=== PATIENT | male | born 1950 | race American Indian/Alaskan Native ===

== ENCOUNTER 2016-10-20 20:03 | Inpatient (IN) | payer BC, MEDICARE ==
[2016-10-20 21:04] LABS: Basophils % (Auto) 0.8 % (0.0-1.8); Eosinophils % (Auto) 4.9 % (0.0-4.3); Hemoglobin 12.4 gm/dl (11.8-15.2); Mean Corpuscular HGB Conc 31 % (32-34); Mean Corpuscular Hemoglobin 28 pg (28-32); Mean Corpuscular Volume 88 fl (84-94); Platelet Count 242 K/mm3 (140-440); Red Blood Count 4.53 M/mm3 (3.65-5.03); White Blood Count 7.2 K/mm3 (4.5-11.0)
[2016-10-20 21:10] LABS: Albumin 3.2 g/dL (3.9-5); Albumin/Globulin Ratio 0.9 %; BUN/Creatinine Ratio 7.03; Bilirubin,Total 0.2 mg/dL (0.1-1.2); Calcium 8.6 mg/dL (8.4-10.2); Chloride 94.6 mmol/L (98-107); Magnesium 2.4 mg/dL (1.7-2.3); Total Protein 6.8 g/dL (6.3-8.2)
[2016-10-20] MEDS ORDERED: ATIVAN ONE (21:10)
[2016-10-20] MEDS ORDERED: HALDOL ONE (21:10)
[2016-10-20] MEDS ORDERED: HALDOL IM ONE (21:12)
[2016-10-20] MEDS ORDERED: VALIUM IV ONE (21:12)
[2016-10-20] MEDS ORDERED: ATIVAN IV ONE (21:12)
[2016-10-20] MEDS ORDERED: APRESOLINE IV ONE ×2 (21:12→22:30)
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
[2016-10-20 21:59] LABS: Urine Drugs of Abuse Note Disclamer
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
[2016-10-20 22:20] LABS: Bilirubin,Urine NEG (Negative); Blood,Urine NEG (Negative); Ketones,Urine NEG (Negative); Leukocyte Esterase,Urine NEG (Negative); Nitrite,Urine NEG (Negative); Urobilinogen,Urine < 2.0 mg/dL (<2.0); WBC,Urine < 1.0 /HPF (0.0-6.0)
[2016-10-20 22:28] LABS: Protein,Urine >500 mg/dL (Negative)
[2016-10-20] MEDS ORDERED: NACL 0.9% 1000 ML 1,000 ML IV ONE (22:30)
[2016-10-20] MEDS ORDERED: D50W (25GM) IV PRN (23:09)
[2016-10-20] MEDS ORDERED: ZOFRAN IV PRN (23:12)
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
--- NOTE | 2016-10-20 23:30 | XRay Report ---
FINAL REPORT PROCEDURE: XR CHEST 1V AP TECHNIQUE: Chest radiograph anteroposterior view. CPT 82160 HISTORY: ams ? pna COMPARISON: No prior studies are available for comparison. FINDINGS: This study is limited due to suboptimal inspiration. Heart: Normal. Mediastinum/Vessels: Normal. Lungs/Pleural space: Normal. Bony thorax: No acute osseous abnormality. Life support devices: None. IMPRESSION: Limited study due to suboptimal inspiration. No acute pulmonary process. A two view chest study is recommended whenever the patient's condition permits.
[2016-10-20] MEDS ORDERED: D5W/0.45% NACL/KCL 20 MEQ 20 MEQ/1,000 ML BAG IV SCH (23:45)
[2016-10-20] MEDS ORDERED: D5/0.45NS 1,000 ML IV SCH (23:45)
[2016-10-20] MEDS ORDERED: CARDENE 50 MG in NACL 0.9% 250ML 230 ML IV SCH (23:45)
[2016-10-21 00:01] LABS: BUN/Creatinine Ratio 7.3; Calcium 8.7 mg/dL (8.4-10.2); Chloride 96.1 mmol/L (98-107); Magnesium 2.3 mg/dL (1.7-2.3); Phosphorous 1.3 mg/dL (2.5-4.5); Potassium 4.6 mmol/L (3.6-5.0)
[2016-10-21] MEDS ORDERED: NACL 0.9% 1000 ML 1,000 ML ONE (00:07)
[2016-10-21] MEDS: NovoLIN R 100 UNITS in NACL 0.9% 99 ML IV SCH ×2 (00:15→15:36)
[2016-10-21] MEDS: NACL 0.9% 1000 ML 1,000 ML IV SCH ×2 (00:15→05:33)
--- NOTE | 2016-10-21 00:23 | Admit Criteria Form ---
Admission Criteria Documentation: HYPERTENSION Clinical Indications for Admission to Inpatient Care ( Place "X" for any and all applicable criteria): Admission is indicated for ANY ONE of the following(1)(2)(3)(4): [ X]I. Hypertensive emergency, with evidence of acute and progressing target organ disease as indicated by ANY ONE of the following: [ X]a) Hypertensive encephalopathy (eg, confusion, altered mental status) [ ]b) Cerebral infarction [ ]c) Intracranial hemorrhage [ ]d) Myocardial ischemia or infarction [ ]e) Pulmonary edema [ ]f) Aortic dissection [ ]g) Seizure [ ]h) Acute renal insufficiency [ ]i) Papilledema [ ]j) Microangiopathic hemolytic anemia [ ]II. Adrenergic crisis (eg, severe hypertension due to pheochromocytoma crisis, cocaine or amphetamine intoxication, or clonidine withdrawal) [ ]III. Severe hypertension (SBP greater than 180 mmHg or DBP greater than 110 mmHg or greater than the 95th percentile for age, gender, and height in pediatric patients) that cannot be controlled (eg, to SBP less than 160 mmHg and DBP less than 100 mmHg in adults) by treatment with oral medication in emergency department or observation care Extended stay beyond goal length of stay may be needed for(11)(12)(13): [ ]a) Persistent hypertensive encephalopathy [ ]b) Continuation of pulmonary edema [ ]c) Recurring or persistent severe hypertension [ ]d) Target organ damage (eg, angina, stroke, aortic dissection) [ ]e) Associated renal insufficiency The original [employer] content created by [employer] has been revised. The portions of the content which have been revised are identified through the use of italic text or in bold, and [facility] has neither reviewed nor approved the modified material. All other unmodified content is copyright [employer]. Please see references footnoted in the original [employer] edition 2016
[2016-10-21 00:25] LABS: Creatine Kinase MB 3.3 ng/mL (0.0-4.0)
[2016-10-21 00:26] LABS: Creatine Kinase 307 units/L (55-170)
[2016-10-21] MEDS ORDERED: ATIVAN IV ONE (00:31)
[2016-10-21 00:44] LABS: Cholesterol 240 mg/dL (50-199); HDL Cholesterol 30 mg/dL (40-59); LDL Cholesterol,Direct TNR mg/dL (50-130); Triglycerides 637 mg/dL (2-149)
[2016-10-21] MEDS: APRESOLINE IV PRN (01:25)
[2016-10-21 01:59] LABS: BUN/Creatinine Ratio 7.2; Calcium 8.9 mg/dL (8.4-10.2); Chloride 102.7 mmol/L (98-107); Potassium 4.2 mmol/L (3.6-5.0)
[2016-10-21 04:53] LABS: BUN/Creatinine Ratio 6.95; Chloride 107.3 mmol/L (98-107)
[2016-10-21 07:59] LABS: BUN/Creatinine Ratio 6.81; Calcium 8.9 mg/dL (8.4-10.2); Potassium 3.8 mmol/L (3.6-5.0)
[2016-10-21 09:19] LABS: Creatine Kinase MB 2.3 ng/mL (0.0-4.0)
[2016-10-21] MEDS ORDERED: NACL 0.9% 1000 ML IV ONE (11:01)
[2016-10-21] MEDS ORDERED: PANCREAZE DR 10,500 UNIT FEEDTUBE PRN (11:30)
[2016-10-21] MEDS ORDERED: SODIUM BICARBONATE FEEDTUBE PRN (11:30)
[2016-10-21] MEDS ORDERED: SIMPLE SYRUP FEEDTUBE PRN ×2 (11:30)
[2016-10-21] MEDS: LOVENOX SUB-Q SCH (12:22)
--- NOTE | 2016-10-21 13:43 | XRay Report ---
KUB: Dobbhoff position. The tip of the Dobbhoff catheter is in the very proximal stomach. Advancing it several centimeters is advised for better positioning. No other findings.
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
[2016-10-21] MEDS ORDERED: NACL 0.9% 1000 ML 1,000 ML IV SCH (15:00)
[2016-10-21] MEDS: ZOSYN/NS 4.5GM/100ML 4.5 GM/100 ML VIAL IV SCH ×2 (15:35→18:00)
[2016-10-21 16:20] LABS: INR 1.06 (0.87-1.13)
[2016-10-21 16:30] LABS: BUN/Creatinine Ratio 5.5; Calcium 7.1 mg/dL (8.4-10.2); Chloride 87.9 mmol/L (98-107)
[2016-10-21 18:09] LABS: Albumin 2.6 g/dL (3.9-5); Albumin/Globulin Ratio 0.8 %; BUN/Creatinine Ratio 5.45; Bilirubin,Total 0.3 mg/dL (0.1-1.2); Calcium 8.3 mg/dL (8.4-10.2); Chloride 107.5 mmol/L (98-107); Potassium 3.6 mmol/L (3.6-5.0); Total Protein 5.8 g/dL (6.3-8.2)
[2016-10-21] MEDS ORDERED: LEVEMIR SUB-Q SCH (22:00)
[2016-10-21] MEDS: NOVOLOG SUB-Q SCH (22:00)
[2016-10-22] MEDS ORDERED: NITRO-BID 2% TP ONE (04:51)
[2016-10-22] MEDS ORDERED: APRESOLINE IV ONE (04:52)
[2016-10-22] MEDS ORDERED: TOPROL XL PO STA (05:42)
[2016-10-22 05:55] LABS: Hematocrit 38.1 % (35.5-45.6); Mean Corpuscular HGB Conc 32 % (32-34); Mean Corpuscular Hemoglobin 27 pg (28-32); Mean Corpuscular Volume 85 fl (84-94); Platelet Count 236 K/mm3 (140-440); Red Blood Count 4.51 M/mm3 (3.65-5.03); Red Cell Distribution Width 14.1 % (13.2-15.2); White Blood Count 11.4 K/mm3 (4.5-11.0)
[2016-10-22 06:08] LABS: BUN/Creatinine Ratio 5.65; Calcium 8.3 mg/dL (8.4-10.2); Chloride 105.9 mmol/L (98-107); Potassium 3.9 mmol/L (3.6-5.0)
[2016-10-22] MEDS: ZOSYN/NS 4.5GM/100ML 4.5 GM/100 ML VIAL IV SCH ×3 (06:12→12:19)
[2016-10-22] MEDS: LOPRESSOR PO SCH ×2 (09:41→21:22)
[2016-10-22] MEDS: LOVENOX SUB-Q SCH (09:42)
[2016-10-22] MEDS: NOVOLOG SUB-Q SCH ×4 (09:42→23:47)
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
--- NOTE | 2016-10-22 14:11 | Consultation ---
History of Present Illness - Reason for Consult Consult date: 10/22/16 ams - History of Present Illness Thanks for the consult spoke to the attending nurse last evening went over the hx and all labs Past History Past Medical History: diabetes, hypertension, hyperlipidemia, renal failure Social history: lives with family Family history: hypertension Medications and Allergies Allergies Allergy/AdvReac Type Severity Reaction Status Date / Time No Known Allergies Allergy Verified 10/20/16 21:10 Active Meds: Active Medications Acetaminophen (Tylenol) 650 mg PO Q4H PRN PRN Reason: Pain MILD(1-3)/Fever >100.5/KNOTT Lipase/Protease/Amylase (Pancreaze Dr 10,500 Unit) 1 each FEEDTUBE PRN PRN PRN Reason: For Clogged Feeding Tube Dextrose (D50w (25gm)) 0 ml IV ONCE PRN PRN Reason: Hypoglycemia Enoxaparin Sodium (Lovenox) 40 mg SUB-Q QDAY@1000 KAYCE Hydralazine HCl (Apresoline) 10 mg IV Q6HR PRN PRN Reason: Hypertension Last Admin: 10/21/16 01:25 Dose: 10 mg Sodium Chloride (Nacl 0.9% 1000 Ml) 1,000 mls @ 125 mls/hr IV DIRECT KAYCE Last Admin: 10/21/16 05:33 Dose: 125 mls/hr Dextrose/Sodium Chloride (D5/0.45ns) 1,000 mls @ 125 mls/hr IV DIRECT KAYCE Last Admin: 10/21/16 04:53 Dose: 125 mls/hr Nicardipine HCl 50 mg/ Sodium (Chloride) 250 mls @ 25 mls/hr IV TITR KAYCE; 5 MG/ HR PRN Reason: Protocol Last Titration: 10/21/16 00:53 Dose: 15 mg/hr, 75 mls/hr Piperacillin Sod/Tazobactam Sod (Zosyn/Ns 4.5gm/100ml) 4.5 gm in 100 mls @ 200 mls/hr IV Q6HR KAYCE PRN Reason: Protocol Last Admin: 10/22/16 12:19 Dose: 200 mls/hr Sodium Chloride (Nacl 0.9% 1000 Ml) 1,000 mls @ 125 mls/hr IV DIRECT KAYCE Stop: 10/23/16 22:59 Last Admin: 10/21/16 14:55 Dose: 125 mls/hr Insulin Aspart (Novolog) 0 units SUB-Q ACHS [facility] PRN Reason: Protocol Last Admin: 10/22/16 12:19 Dose: 4 units Insulin Detemir (Levemir) 10 units SUB-Q QHS [facility] Last Admin: 10/21/16 22:30 Dose: 10 units Metoprolol Tartrate (Lopressor) 50 mg PO BID [facility] Last Admin: 10/22/16 09:41 Dose: 50 mg Ondansetron HCl (Zofran) 4 mg IV Q4H PRN PRN Reason: N/V unrelieved by Reglan Simple Syrup (Simple Syrup) 15 ml FEEDTUBE PRN PRN PRN Reason: Hypoglycemia Simple Syrup (Simple Syrup) 30 ml FEEDTUBE PRN PRN PRN Reason: Hypoglycemia Sodium Bicarbonate (Sodium Bicarbonate) 325 mg FEEDTUBE PRN PRN PRN Reason: For Clogged Feeding Tube Exam - Constitutional Vitals: Temp Pulse Resp BP Pulse Ox 99.2 F 74 20 201/92 97 10/22/16 13:43 10/22/16 13:43 10/22/16 13:43 10/22/16 13:43 10/22/16 12:10 Results - Labs CBC & Chem 7: 10/22/16 05:10 10/22/16 05:10 Labs: Abnormal lab results 10/21/16 10/21/16 10/21/16 Range/Units 12:57 14:38 14:46 WBC (4.5-11.0) K/mm3 MCH (28-32) pg Sodium (137-145) mmol/L Potassium (3.6-5.0) mmol/L Chloride (98-107) mmol/L Carbon Dioxide (22-30) mmol/L Creatinine (0.8-1.5) mg/dL Glucose (75-100) mg/dL POC Glucose 144 H 186 H 180 H (70-105) Calcium (8.4-10.2) mg/dL Total Protein (6.3-8.2) g/dL Albumin (3.9-5) g/dL 10/21/16 10/21/16 10/21/16 Range/Units 15:34 16:06 17:46 WBC (4.5-11.0) K/mm3 MCH (28-32) pg Sodium 162 H* D (137-145) mmol/L Potassium 3.0 L D (3.6-5.0) mmol/L Chloride 87.9 L (98-107) mmol/L Carbon Dioxide 16 L (22-30) mmol/L Creatinine 2.0 H 2.2 H (0.8-1.5) mg/dL Glucose 131 H (75-100) mg/dL POC Glucose 179 H (70-105) Calcium 7.1 L D 8.3 L D (8.4-10.2) mg/dL Total Protein 5.8 L (6.3-8.2) g/dL Albumin 2.6 L (3.9-5) g/dL 10/21/16 10/21/16 10/21/16 Range/Units 18:38 19:51 20:55 WBC (4.5-11.0) K/mm3 MCH (28-32) pg Sodium (137-145) mmol/L Potassium (3.6-5.0) mmol/L Chloride (98-107) mmol/L Carbon Dioxide (22-30) mmol/L Creatinine (0.8-1.5) mg/dL Glucose (75-100) mg/dL POC Glucose 107 H 146 H 184 H (70-105) Calcium (8.4-10.2) mg/dL Total Protein (6.3-8.2) g/dL Albumin (3.9-5) g/dL 10/21/16 10/21/16 10/22/16 Range/Units 21:54 23:58 03:27 WBC (4.5-11.0) K/mm3 MCH (28-32) pg Sodium (137-145) mmol/L Potassium (3.6-5.0) mmol/L Chloride (98-107) mmol/L Carbon Dioxide (22-30) mmol/L Creatinine (0.8-1.5) mg/dL Glucose (75-100) mg/dL POC Glucose 202 H 227 H 301 H (70-105) Calcium (8.4-10.2) mg/dL Total Protein (6.3-8.2) g/dL Albumin (3.9-5) g/dL 10/22/16 10/22/16 10/22/16 Range/Units 03:49 05:10 05:10 WBC 11.4 H (4.5-11.0) K/mm3 MCH 27 L (28-32) pg Sodium (137-145) mmol/L Potassium (3.6-5.0) mmol/L Chloride (98-107) mmol/L Carbon Dioxide 19 L (22-30) mmol/L Creatinine 2.3 H (0.8-1.5) mg/dL Glucose 316 H (75-100) mg/dL POC Glucose 252 H (70-105) Calcium 8.3 L (8.4-10.2) mg/dL Total Protein (6.3-8.2) g/dL Albumin (3.9-5) g/dL 10/22/16 10/22/16 Range/Units 05:19 08:08 WBC (4.5-11.0) K/mm3 MCH (28-32) pg Sodium (137-145) mmol/L Potassium (3.6-5.0) mmol/L Chloride (98-107) mmol/L Carbon Dioxide (22-30) mmol/L Creatinine (0.8-1.5) mg/dL Glucose (75-100) mg/dL POC Glucose 294 H 286 H (70-105) Calcium (8.4-10.2) mg/dL Total Protein (6.3-8.2) g/dL Albumin (3.9-5) g/dL
--- NOTE | 2016-10-22 14:20 | Consultation ---
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 sounds like metabolic factors are behind all the above plan MRI Past History Past Medical History: diabetes, hypertension, hyperlipidemia, renal failure Social history: lives with family Family history: hypertension Medications and Allergies Allergies Allergy/AdvReac Type Severity Reaction Status Date / Time No Known Allergies Allergy Verified 10/20/16 21:10 Active Meds: Active Medications Acetaminophen (Tylenol) 650 mg PO Q4H PRN PRN Reason: Pain MILD(1-3)/Fever >100.5/KNOTT Lipase/Protease/Amylase (Pancreaze Dr 10,500 Unit) 1 each FEEDTUBE PRN PRN PRN Reason: For Clogged Feeding Tube Dextrose (D50w (25gm)) 0 ml IV ONCE PRN PRN Reason: Hypoglycemia Enoxaparin Sodium (Lovenox) 40 mg SUB-Q QDAY@1000 KAYCE Hydralazine HCl (Apresoline) 10 mg IV Q6HR PRN PRN Reason: Hypertension Last Admin: 10/21/16 01:25 Dose: 10 mg Sodium Chloride (Nacl 0.9% 1000 Ml) 1,000 mls @ 125 mls/hr IV DIRECT KAYCE Last Admin: 10/21/16 05:33 Dose: 125 mls/hr Dextrose/Sodium Chloride (D5/0.45ns) 1,000 mls @ 125 mls/hr IV DIRECT KAYCE Last Admin: 10/21/16 04:53 Dose: 125 mls/hr Nicardipine HCl 50 mg/ Sodium (Chloride) 250 mls @ 25 mls/hr IV TITR KAYCE; 5 MG/ HR PRN Reason: Protocol Last Titration: 10/21/16 00:53 Dose: 15 mg/hr, 75 mls/hr Piperacillin Sod/Tazobactam Sod (Zosyn/Ns 4.5gm/100ml) 4.5 gm in 100 mls @ 200 mls/hr IV Q6HR KAYCE PRN Reason: Protocol Last Admin: 10/22/16 12:19 Dose: 200 mls/hr Sodium Chloride (Nacl 0.9% 1000 Ml) 1,000 mls @ 125 mls/hr IV DIRECT KAYCE Stop: 10/23/16 22:59 Last Admin: 10/21/16 14:55 Dose: 125 mls/hr Insulin Aspart (Novolog) 0 units SUB-Q ACHS [facility] PRN Reason: Protocol Last Admin: 10/22/16 12:19 Dose: 4 units Insulin Detemir (Levemir) 10 units SUB-Q QHS [facility] Last Admin: 10/21/16 22:30 Dose: 10 units Metoprolol Tartrate (Lopressor) 50 mg PO BID [facility] Last Admin: 10/22/16 09:41 Dose: 50 mg Ondansetron HCl (Zofran) 4 mg IV Q4H PRN PRN Reason: N/V unrelieved by Reglan Simple Syrup (Simple Syrup) 15 ml FEEDTUBE PRN PRN PRN Reason: Hypoglycemia Simple Syrup (Simple Syrup) 30 ml FEEDTUBE PRN PRN PRN Reason: Hypoglycemia Sodium Bicarbonate (Sodium Bicarbonate) 325 mg FEEDTUBE PRN PRN PRN Reason: For Clogged Feeding Tube Exam - Constitutional Vitals: Temp Pulse Resp BP Pulse Ox 99.2 F 74 20 201/92 97 10/22/16 13:43 10/22/16 13:43 10/22/16 13:43 10/22/16 13:43 10/22/16 12:10 Results - Labs CBC & Chem 7: 10/22/16 05:10 10/22/16 05:10 Labs: Abnormal lab results 10/21/16 10/21/16 10/21/16 Range/Units 12:57 14:38 14:46 WBC (4.5-11.0) K/mm3 MCH (28-32) pg Sodium (137-145) mmol/L Potassium (3.6-5.0) mmol/L Chloride (98-107) mmol/L Carbon Dioxide (22-30) mmol/L Creatinine (0.8-1.5) mg/dL Glucose (75-100) mg/dL POC Glucose 144 H 186 H 180 H (70-105) Calcium (8.4-10.2) mg/dL Total Protein (6.3-8.2) g/dL Albumin (3.9-5) g/dL 10/21/16 10/21/16 10/21/16 Range/Units 15:34 16:06 17:46 WBC (4.5-11.0) K/mm3 MCH (28-32) pg Sodium 162 H* D (137-145) mmol/L Potassium 3.0 L D (3.6-5.0) mmol/L Chloride 87.9 L (98-107) mmol/L Carbon Dioxide 16 L (22-30) mmol/L Creatinine 2.0 H 2.2 H (0.8-1.5) mg/dL Glucose 131 H (75-100) mg/dL POC Glucose 179 H (70-105) Calcium 7.1 L D 8.3 L D (8.4-10.2) mg/dL Total Protein 5.8 L (6.3-8.2) g/dL Albumin 2.6 L (3.9-5) g/dL 10/21/16 10/21/16 10/21/16 Range/Units 18:38 19:51 20:55 WBC (4.5-11.0) K/mm3 MCH (28-32) pg Sodium (137-145) mmol/L Potassium (3.6-5.0) mmol/L Chloride (98-107) mmol/L Carbon Dioxide (22-30) mmol/L Creatinine (0.8-1.5) mg/dL Glucose (75-100) mg/dL POC Glucose 107 H 146 H 184 H (70-105) Calcium (8.4-10.2) mg/dL Total Protein (6.3-8.2) g/dL Albumin (3.9-5) g/dL 10/21/16 10/21/16 10/22/16 Range/Units 21:54 23:58 03:27 WBC (4.5-11.0) K/mm3 MCH (28-32) pg Sodium (137-145) mmol/L Potassium (3.6-5.0) mmol/L Chloride (98-107) mmol/L Carbon Dioxide (22-30) mmol/L Creatinine (0.8-1.5) mg/dL Glucose (75-100) mg/dL POC Glucose 202 H 227 H 301 H (70-105) Calcium (8.4-10.2) mg/dL Total Protein (6.3-8.2) g/dL Albumin (3.9-5) g/dL 10/22/16 10/22/16 10/22/16 Range/Units 03:49 05:10 05:10 WBC 11.4 H (4.5-11.0) K/mm3 MCH 27 L (28-32) pg Sodium (137-145) mmol/L Potassium (3.6-5.0) mmol/L Chloride (98-107) mmol/L Carbon Dioxide 19 L (22-30) mmol/L Creatinine 2.3 H (0.8-1.5) mg/dL Glucose 316 H (75-100) mg/dL POC Glucose 252 H (70-105) Calcium 8.3 L (8.4-10.2) mg/dL Total Protein (6.3-8.2) g/dL Albumin (3.9-5) g/dL 10/22/16 10/22/16 Range/Units 05:19 08:08 WBC (4.5-11.0) K/mm3 MCH (28-32) pg Sodium (137-145) mmol/L Potassium (3.6-5.0) mmol/L Chloride (98-107) mmol/L Carbon Dioxide (22-30) mmol/L Creatinine (0.8-1.5) mg/dL Glucose (75-100) mg/dL POC Glucose 294 H 286 H (70-105) Calcium (8.4-10.2) mg/dL Total Protein (6.3-8.2) g/dL Albumin (3.9-5) g/dL
--- NOTE | 2016-10-22 16:13 | Progress Note ---
Assessment and Plan Assessment and plan: Metabolic Encephalopathy? POA, improving, METABOLIC PROCESS. Hypertensive urgency None ketotic hyperosmolar state SEPSIS RULED OUT geovanny POSSIBLY DUE TO HYPERTENSIVE NEPHROPATHY, ?ckd STABLE Hyperlipidemia OK TO TRANSFER TO FLOOR, ENCEPHALOPATHY RESOLVED PATIENT WAS NOT TAKING MEDS AND not MONITORING DM AT HOME [place] CULTURE Resume Home BP meds AVOID NEPHROTOXIC MEDICATIONS Nephrology consult continue ABX SEPSIS PROTOCOL CANCEL LUMBER PUNCTURE Wean cardene drip, BP control, Diabetic teaching Monitor blood glucose levels, serial chemistry Start iv fluid, monitor renal function Consult critical care, check MR head Start dvt prophalaxis transfer to medical floor. plan discussed with spouse and patient. History Interval history: Patient seen and examined today with remarkable improvement, he is awake alert and communicative. No other adverse events reported by nursing staff. Hospitalist Physical - Physical exam Narrative exam: VITAL SIGNS: Reviewed. GENERAL: The patient appeared well nourished and normally developed. Vital signs as documented. HEAD: No signs of head trauma. EYES: Pupils are equal. Extraocular motions intact. EARS: Hearing grossly intact. MOUTH: Oropharynx is normal. NECK: No adenopathy, no JVD. CHEST: Chest with clear breath sounds bilaterally. No wheezes, rales, or rhonchi. CARDIAC: Regular rate and rhythm. S1 and S2, without murmurs, gallops, or rubs. VASCULAR: No Edema. Peripheral pulses normal and equal in all extremities. ABDOMEN: Soft, without detectable tenderness. No sign of distention. No rebound or guarding, and no masses palpated. Bowel Sounds normal. MUSCULOSKELETAL: Good range of motion of all major joints. Extremities without clubbing, cyanosis or edema. NEUROLOGIC EXAM: Alert and oriented x 3. No focal sensory or strength deficits. Speech normal. Follows commands. PSYCHIATRIC: Mood normal. SKIN: No rash or lesions. - Constitutional Vitals: Temp Pulse Resp BP Pulse Ox 99.2 F 74 20 201/92 97 10/22/16 13:43 10/22/16 13:43 10/22/16 13:43 10/22/16 13:43 10/22/16 12:10 General appearance: Present: no acute distress, well-nourished Results - Labs CBC & Chem 7: 10/23/16 03:19 10/23/16 03:19 Labs: Laboratory Last Values WBC 11.4 K/mm3 (4.5-11.0) H 05/27/17 05:10 RBC 4.51 M/mm3 (3.65-5.03) 10/22/16 05:10 Hgb 12.0 gm/dl (11.8-15.2) 10/22/16 05:10 Hct 38.1 % (35.5-45.6) 10/22/16 05:10 MCV 85 fl (84-94) D 10/22/16 05:10 MCH 27 pg (28-32) L 10/22/16 05:10 MCHC 32 % (32-34) 10/22/16 05:10 RDW 14.1 % (13.2-15.2) 10/22/16 05:10 Plt Count 236 K/mm3 (140-440) 10/22/16 05:10 Lymph % (Auto) 18.9 % (13.4-35.0) 10/20/16 20:38 [place] % (Auto) 11.2 % (0.0-7.3) H 10/20/16 20:38 Eos % (Auto) 4.9 % (0.0-4.3) H 10/20/16 20:38 Baso % (Auto) 0.8 % (0.0-1.8) 10/20/16 20:38 Lymph # 1.4 K/mm3 (1.2-5.4) 10/20/16 20:38 [place] # 0.8 K/mm3 (0.0-0.8) 10/20/16 20:38 Eos # 0.4 K/mm3 (0.0-0.4) 10/20/16 20:38 Baso # 0.1 K/mm3 (0.0-0.1) 10/20/16 20:38 Seg Neutrophils % 64.2 % (40.0-70.0) 10/20/16 20:38 Seg Neutrophils # 4.6 K/mm3 (1.8-7.7) 10/20/16 20:38 PT 13.7 Sec. (12.2-14.9) 10/21/16 15:34 INR 1.06 (0.87-1.13) 10/21/16 15:34 APTT 26.0 Sec. (24.2-36.6) 10/21/16 13:25 VBG pH 7.341 (7.320-7.420) 10/20/16 20:38 Sodium 140 mmol/L (137-145) 10/22/16 05:10 Potassium 3.9 mmol/L (3.6-5.0) 10/22/16 05:10 Chloride 105.9 mmol/L (98-107) 10/22/16 05:10 Carbon Dioxide 19 mmol/L (22-30) L 10/22/16 05:10 Anion Gap 19 mmol/L 10/22/16 05:10 BUN 13 mg/dL (9-20) 10/22/16 05:10 Creatinine 2.3 mg/dL (0.8-1.5) H 10/22/16 05:10 Estimated GFR 35 ml/min 10/22/16 05:10 BUN/Creatinine Ratio 5.65 % 10/22/16 05:10 Glucose 316 mg/dL (75-100) H 10/22/16 05:10 POC Glucose 286 (70-105) H 10/22/16 08:08 Hemoglobin A1c 16.7 % (4-6) H 10/20/16 23:28 Lactic Acid 1.80 mmol/L (0.7-2.0) 10/21/16 14:09 Calcium 8.3 mg/dL (8.4-10.2) L 10/22/16 05:10 Phosphorus 1.30 mg/dL (2.5-4.5) L 10/20/16 23:28 Magnesium 2.30 mg/dL (1.7-2.3) 10/20/16 23:28 Total Bilirubin 0.30 mg/dL (0.1-1.2) 10/21/16 17:46 AST 15 units/L (5-40) 10/21/16 17:46 ALT 9 units/L (7-56) 10/21/16 17:46 Alkaline Phosphatase 77 units/L (35-129) 10/21/16 17:46 Total Creatine Kinase 311 units/L (55-170) H 10/21/16 07:25 CK-MB (CK-2) 2.3 ng/mL (0.0-4.0) 10/21/16 07:25 CK-MB (CK-2) Rel Index 0.7 (0-4) 10/21/16 07:25 Troponin T 0.049 ng/mL (0.00-0.029) H D 10/21/16 07:25 Total Protein 5.8 g/dL (6.3-8.2) L 10/21/16 17:46 Albumin 2.6 g/dL (3.9-5) L 10/21/16 17:46 Albumin/Globulin Ratio 0.8 % 10/21/16 17:46 Triglycerides 637 mg/dL (2-149) H 10/20/16 23:28 Cholesterol 240 mg/dL (50-199) H 10/20/16 23:28 LDL Cholesterol Direct TNR 10/20/16 23:28 HDL Cholesterol 30 mg/dL (40-59) L 10/20/16 23:28 Cholesterol/HDL Ratio 8.00 % 10/20/16 23:28 TSH 0.767 mlU/mL (0.270-4.200) 10/20/16 20:38 Urine Color Straw (Yellow) 10/20/16 21:48 Urine Turbidity Clear (Clear) 10/20/16 21:48 Urine pH 7.0 (5.0-7.0) 10/20/16 21:48 Ur Specific [place] 1.018 (1.003-1.030) 10/20/16 21:48 Urine Protein >500 mg/dL (Negative) 10/20/16 21:48 Urine Glucose (UA) >=500 mg/dL (Negative) 10/20/16 21:48 Urine Ketones Neg mg/dL (Negative) 10/20/16 21:48 Urine Blood Neg (Negative) 10/20/16 21:48 Urine Nitrite Neg (Negative) 10/20/16 21:48 Urine Bilirubin Neg (Negative) 10/20/16 21:48 Urine Urobilinogen < 2.0 mg/dL (<2.0) 10/20/16 21:48 Ur Leukocyte Esterase Neg (Negative) 10/20/16 21:48 Urine WBC (Auto) < 1.0 /HPF (0.0-6.0) 10/20/16 21:48 Urine RBC (Auto) 1.0 /HPF (0.0-6.0) 10/20/16 21:48 U Epithel Cells (Auto) < 1.0 /HPF (0-13.0) 10/20/16 21:48 Salicylates < 0.3 mg/dL (2.8-20.0) L 10/20/16 20:38 Urine Opiates Screen Presumptive negative 10/20/16 21:48 Urine Methadone Screen Presumptive negative 10/20/16 21:48 Acetaminophen < 15.0 ug/mL (10.0-30.0) 10/20/16 20:38 Ur Barbiturates Screen Presumptive negative 10/20/16 21:48 Ur Phencyclidine Scrn Presumptive negative 10/20/16 21:48 Ur Amphetamines Screen Presumptive negative 10/20/16 21:48 U Benzodiazepines Scrn Presumptive negative 10/20/16 21:48 Urine Cocaine Screen Presumptive negative 10/20/16 21:48 U Marijuana (THC) Screen Presumptive negative 10/20/16 21:48 Drugs of Abuse Note Disclamer 10/20/16 21:48 Plasma/Serum Alcohol < 0.01 gm% (0-0.07) 10/20/16 20:38 - Imaging and Cardiology Chest x-ray: image reviewed
--- NOTE | 2016-10-22 17:04 | Magnetic Resonance Report ---
FINAL REPORT PROCEDURE: MR BRAIN WO CON TECHNIQUE: Multi planar multi sequence MR imaging of the brain was performed. HISTORY: seizure COMPARISON: Noncontrast head CT 10/20/2016 FINDINGS: The study is partially compromised due to motion. The cerebellar tonsils are however seen to be normal in position. The pituitary gland is normal in size, the posterior bright spot normal in location. The corpus callosum is normal in size and signal intensity. Brain volume is age appropriate. Again there is mild deep white matter microvascular ischemic change in a symmetric distribution. There is no restricted diffusion to suggest acute bland ischemia or hypercellular neoplasm. There is no gross mass lesion or leptomeningeal abnormality given limitation of lack of IV gadolinium. There is no intra or extra-axial hemorrhage. There is no hypointense gradient echo signal to suggest hemosiderin associated with punctate occult micro hemorrhage. The visualized paranasal sinuses and mastoid air cells are clear. Marrow signal is normal. IMPRESSION: Partially motion compromised exam without gross focal abnormality. Mild deep white matter microvascular ischemic change again seen.
[2016-10-22] MEDS ORDERED: NORVASC PO ONE (19:21)
[2016-10-22] MEDS: APRESOLINE IV PRN (21:21)
[2016-10-22] MEDS: NACL 0.9% 1000 ML 1,000 ML IV SCH (21:22)
[2016-10-22] MEDS: LEVEMIR SUB-Q SCH (21:59)
[2016-10-22] MEDS ORDERED: TOPROL XL PO SCH (23:45)
[2016-10-23] MEDS: TYLENOL PO PRN ×2 (00:59→10:33)
[2016-10-23] MEDS: APRESOLINE IV PRN ×2 (03:09→08:00)
[2016-10-23] MEDS: NACL 0.9% 1000 ML 1,000 ML IV SCH ×2 (03:10→15:32)
[2016-10-23 03:39] LABS: Hematocrit 38.1 % (35.5-45.6); Hemoglobin 12.3 gm/dl (11.8-15.2); Mean Corpuscular HGB Conc 32 % (32-34); Mean Corpuscular Hemoglobin 28 pg (28-32); Mean Corpuscular Volume 85 fl (84-94); Platelet Count 228 K/mm3 (140-440); Red Cell Distribution Width 13.7 % (13.2-15.2); White Blood Count 12.4 K/mm3 (4.5-11.0)
[2016-10-23 03:56] LABS: BUN/Creatinine Ratio 5.71; Calcium 8.4 mg/dL (8.4-10.2); Chloride 100.8 mmol/L (98-107); Potassium 3.6 mmol/L (3.6-5.0)
[2016-10-23] MEDS ORDERED: ULTRAM PO PRN (07:48)
[2016-10-23] MEDS: LOPRESSOR PO SCH ×2 (08:00→23:46)
[2016-10-23] MEDS: PROCARDIA XL PO SCH (08:00)
[2016-10-23] MEDS: NOVOLOG SUB-Q SCH ×4 (08:14→23:47)
[2016-10-23] MEDS ORDERED: APRESOLINE IV PRN ×2 (08:19→10:53)
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
[2016-10-23] MEDS ORDERED: VITAMIN D2 PO SCH (10:00)
[2016-10-23] MEDS: DIABETA PO SCH ×2 (10:34→23:26)
[2016-10-23] MEDS: LYRICA PO SCH ×2 (10:35→23:45)
[2016-10-23] MEDS: BABY ASPIRIN PO SCH (10:35)
[2016-10-23] MEDS: LOVENOX SUB-Q SCH (10:35)
[2016-10-23] MEDS: ALDACTONE PO SCH ×2 (10:36→23:45)
[2016-10-23] MEDS: TOPROL XL PO SCH ×2 (10:37→23:47)
[2016-10-23] MEDS ORDERED: APRESOLINE PO SCH ×2 (14:00)
[2016-10-23] MEDS: APRESOLINE PO SCH ×2 (15:30→23:46)
[2016-10-23] MEDS: LEVEMIR SUB-Q SCH (22:00)
[2016-10-24 04:53] LABS: Hematocrit 36.4 % (35.5-45.6); Hemoglobin 11.7 gm/dl (11.8-15.2); Mean Corpuscular HGB Conc 32 % (32-34); Mean Corpuscular Hemoglobin 27 pg (28-32); Mean Corpuscular Volume 85 fl (84-94); Platelet Count 228 K/mm3 (140-440); Red Blood Count 4.28 M/mm3 (3.65-5.03); White Blood Count 9.8 K/mm3 (4.5-11.0)
[2016-10-24 05:13] LABS: Calcium 8.1 mg/dL (8.4-10.2); Chloride 105.9 mmol/L (98-107); Potassium 3.4 mmol/L (3.6-5.0)
[2016-10-24] MEDS: APRESOLINE PO SCH ×3 (06:27→22:25)
[2016-10-24] MEDS: NOVOLOG SUB-Q SCH ×4 (08:12→22:27)
[2016-10-24] MEDS: LOVENOX SUB-Q SCH (10:51)
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
[2016-10-24] MEDS: LOPRESSOR PO SCH (10:52)
[2016-10-24] MEDS: TOPROL XL PO SCH (10:53)
[2016-10-24] MEDS: BABY ASPIRIN PO SCH (10:54)
[2016-10-24] MEDS: ALDACTONE PO SCH ×2 (10:54→22:25)
[2016-10-24] MEDS: LYRICA PO SCH ×2 (10:54→22:24)
[2016-10-24] MEDS: PROCARDIA XL PO SCH ×2 (10:54→16:44)
[2016-10-24] MEDS ORDERED: K-DUR PO ONE (10:54)
[2016-10-24] MEDS: DIABETA PO SCH (10:54)
--- NOTE | 2016-10-24 11:26 | Progress Note ---
Assessment and Plan - Patient Problems (1) Altered mental status Current Visit: Yes Status: Acute Qualifiers: Altered mental status type: A Coma depth: C Coma timing: C Plan to address problem: 1. Resolved. 2. Continue to monitor clinically off antibiotics. Subjective Date of service: 10/24/16 Interval history: Remains afebrile in ICU. Mental status at baseline. Patient has no new complaints. Objective - Constitutional Vitals: Vital Signs Temp Pulse Resp BP Pulse Ox 99 F 86 18 162/82 97 10/24/16 10:00 10/24/16 10:54 10/24/16 10:00 10/24/16 10:54 10/24/16 10:00 Temperature -Last 24 Hours Temperature 99 F Temperature 98.6 F General appearance: Present: no acute distress, well-nourished - EENT Eyes: no scleral icterus, no conjunctival injection - Neck Neck: supple, normal ROM - Respiratory Respiratory effort: normal Respiratory: bilateral: CTA - Cardiovascular Rhythm: regular Heart Sounds: Present: S1 & S2 Extremities: No edema - Gastrointestinal General gastrointestinal: Present: soft, non-distended - Integumentary Integumentary: no jaundice, no rash - Neurologic Neurologic: no focal deficits - Psychiatric Psychiatric: appropriate mood/affect - Labs CBC & Chem 7: 10/24/16 04:37 10/24/16 04:37 Labs: Abnormal lab results 10/23/16 10/23/16 10/23/16 Range/Units 11:29 16:36 22:47 Hgb (11.8-15.2) gm/dl MCH (28-32) pg Potassium (3.6-5.0) mmol/L Carbon Dioxide (22-30) mmol/L Creatinine (0.8-1.5) mg/dL Glucose (75-100) mg/dL POC Glucose 240 H 217 H 263 H (70-105) Calcium (8.4-10.2) mg/dL 10/24/16 10/24/16 10/24/16 Range/Units 04:37 04:37 07:35 Hgb 11.7 L (11.8-15.2) gm/dl MCH 27 L (28-32) pg Potassium 3.4 L (3.6-5.0) mmol/L Carbon Dioxide 18 L (22-30) mmol/L Creatinine 2.0 H (0.8-1.5) mg/dL Glucose 205 H (75-100) mg/dL POC Glucose 176 H (70-105) Calcium 8.1 L (8.4-10.2) mg/dL Active Medications Acetaminophen (Tylenol) 650 mg PO Q4H PRN PRN Reason: Pain MILD(1-3)/Fever >100.5/KNOTT Last Admin: 10/23/16 10:33 Dose: 650 mg Lipase/Protease/Amylase (Pancreaze Dr 10,500 Unit) 1 each FEEDTUBE PRN PRN PRN Reason: For Clogged Feeding Tube Aspirin (Baby Aspirin) 81 mg PO QDAY [facility] [place] Last Admin: 10/24/16 10:54 Dose: 81 mg Dextrose (D50w (25gm)) 0 ml IV ONCE PRN PRN Reason: Hypoglycemia Enoxaparin Sodium (Lovenox) 40 mg SUB-Q QDAY@1000 [facility] [place] Last Admin: 10/24/16 10:51 Dose: 40 mg Ergocalciferol (Vitamin D2) 50,000 unit PO Perez [facility] [place] Last Admin: 10/23/16 10:37 Dose: 50,000 unit Glyburide (Diabeta) 5 mg PO BID [facility] [place] Last Admin: 10/24/16 10:54 Dose: 5 mg Hydralazine HCl (Apresoline) 20 mg IV Q4HR PRN PRN Reason: Hypertension Last Admin: 10/23/16 11:12 Dose: 20 mg Hydralazine HCl (Apresoline) 100 mg PO Q8HR [facility] [place] Last Admin: 10/24/16 06:27 Dose: 100 mg Sodium Chloride (Nacl 0.9% 1000 Ml) 1,000 mls @ 125 mls/hr IV DIRECT [facility] [place] Last Admin: 10/23/16 15:32 Dose: 125 mls/hr Dextrose/Sodium Chloride (D5/0.45ns) 1,000 mls @ 125 mls/hr IV DIRECT [facility] [place] Last Admin: 10/21/16 04:53 Dose: 125 mls/hr Insulin Aspart (Novolog) 0 units SUB-Q ACHS KAYCE PRN Reason: Protocol Last Admin: 10/24/16 08:12 Dose: 3 units Insulin Detemir (Levemir) 20 units SUB-Q QHS [facility] [place] Last Admin: 10/23/16 22:00 Dose: 20 units Metoprolol Succinate (Toprol Xl) 100 mg PO BID [facility] [place] Last Admin: 10/24/16 10:53 Dose: Not Given Metoprolol Tartrate (Lopressor) 50 mg PO BID [facility] [place] Last Admin: 10/24/16 10:52 Dose: Not Given Nifedipine (Procardia Xl) 60 mg PO QDAY [facility] [place] Last Admin: 10/24/16 10:54 Dose: 60 mg Ondansetron HCl (Zofran) 4 mg IV Q4H PRN PRN Reason: N/V unrelieved by [facility] Last Admin: 10/23/16 10:30 Dose: 4 mg Pregabalin (Lyrica) 75 mg PO BID [facility] [place] Last Admin: 10/24/16 10:54 Dose: 75 mg Simple Syrup (Simple Syrup) 15 ml FEEDTUBE PRN PRN PRN Reason: Hypoglycemia Simple Syrup (Simple Syrup) 30 ml FEEDTUBE PRN PRN PRN Reason: Hypoglycemia Sodium Bicarbonate (Sodium Bicarbonate) 325 mg FEEDTUBE PRN PRN PRN Reason: For Clogged Feeding Tube Spironolactone (Aldactone) 50 mg PO BID [facility] [place] Last Admin: 10/24/16 10:54 Dose: 50 mg Tramadol HCl (Ultram) 50 mg PO Q6HR PRN PRN Reason: Pain
[2016-10-24] MEDS: GLUCOTROL PO SCH (17:02)
[2016-10-24] MEDS: LEVEMIR SUB-Q SCH (22:27)
[2016-10-25] MEDS: PROCARDIA XL PO SCH (06:22)
[2016-10-25] MEDS: APRESOLINE PO SCH (06:23)
[2016-10-25] MEDS: NOVOLOG SUB-Q SCH ×2 (08:29→11:54)
[2016-10-25] MEDS: GLUCOTROL PO SCH (08:30)
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
[2016-10-25] MEDS: ALDACTONE PO SCH (10:17)
[2016-10-25] MEDS: LOVENOX SUB-Q SCH (10:17)
[2016-10-25] MEDS: LYRICA PO SCH (10:18)
[2016-10-25] MEDS: BABY ASPIRIN PO SCH (10:18)
[2016-10-25 10:35] LABS: BUN/Creatinine Ratio 7.14; Calcium 8.5 mg/dL (8.4-10.2); Chloride 104.2 mmol/L (98-107); Potassium 3.8 mmol/L (3.6-5.0)
[2016-10-25 10:53] VITALS: BP 153/88
[2016-10-25] MEDS ORDERED: APRESOLINE PO SCH (14:00)
== END 2016-10-25 17:15 | disposition home or self-care (01) | DRG 682 ==
LOC: ED 20:03 → CC1 23:12 → CC2 10-22 13:05
PROVIDERS: ADMIT Internal Medicine; ATTEND Internal Medicine
DX: N17.9 Acute kidney failure, unspecified (principal); G93.41 Metabolic encephalopathy; E11.01 Type 2 diabetes mellitus with hyperosmolarity with coma; I16.1 Hypertensive emergency; E87.2 Acidosis; E87.0 Hyperosmolality and hypernatremia; E11.22 Type 2 diabetes mellitus with diabetic chronic kidney disease; R41.82 Altered mental status, unspecified; E78.5 Hyperlipidemia, unspecified; N18.9 Chronic kidney disease, unspecified; I12.9 Hypertensive chronic kidney disease with stage 1 through stage 4 chronic kidney disease, or unspecified chronic kidney disease; F17.200 Nicotine dependence, unspecified, uncomplicated; M47.892 Other spondylosis, cervical region; Z82.49 Family history of ischemic heart disease and other diseases of the circulatory system
CPT/HCPCS: 36415; 70450; 70551; 71010; 72125; 74000; 80048; 80053; 80061; 80307; 80320; 81001; 82140; 82550; 82553; 82805; 82962; 83036; 83735; 84100; 84443; 84484; 85025; 85027; 85610; 85730; 93005; 93010; 93306; 96365; 96372; 96375; 99406; G0480; J0360; J1630; J1650; J1815; J1818; J2060; J2405; J2543; J3360; J7030; J7050

== ENCOUNTER 2017-11-24 21:26 | Emergency (ER) | payer BC, MEDICARE ==
--- NOTE | 2017-11-24 23:30 | XRay Report ---
FINAL REPORT EXAM: XR SPINE SACRUM/COCCYX 2+V HISTORY: low back pain s/p fall TECHNIQUE: AP and lateral views of the sacrum and coccyx PRIORS: None. FINDINGS: The bones are normally aligned and mineralized. There is no evidence of fracture or subluxation. There is degenerative disc disease at L5-S1. The soft tissues are unremarkable. IMPRESSION: No evidence of acute injury.
--- NOTE | 2017-11-24 23:33 | XRay Report ---
FINAL REPORT EXAM: XR CALCANEOUS 2+V LT HISTORY: foot pain s/p fall TECHNIQUE: AP and lateral views of left calcaneus PRIORS: None. FINDINGS: The bones are normally aligned and mineralized. There is no evidence of fracture or subluxation. The soft tissues are unremarkable. IMPRESSION: Normal left calcaneus
--- NOTE | 2017-11-24 23:46 | XRay Report ---
FINAL REPORT EXAM: XR FOOT 3+V LT HISTORY: foot pain s/p fall TECHNIQUE: Three views of the left foot PRIORS: None. FINDINGS: The bones are normally aligned and mineralized. The joint spaces are well-preserved. There is no evidence of acute fracture. The soft tissues are unremarkable. IMPRESSION: No evidence of acute fracture or subluxation.
--- NOTE | 2017-11-24 23:52 | XRay Report ---
FINAL REPORT EXAM: XR SPINE LUMBOSACRAL 2-3V HISTORY: low back pain s/p fall TECHNIQUE: 3 views of the lumbar spine PRIORS: None. FINDINGS: The lumbar vertebral bodies are normal in height. There is endplate osteophyte formation at L3-4, L4-5 and L5-S1. There is moderate loss of disc height at L5-S1. At L5-S1 there is also facet hypertrophy resulting 6 mm of anterolisthesis of L5 on S1. The soft tissues are unremarkable. IMPRESSION: No evidence of acute fracture. Multilevel degenerative disc disease. Degenerative facet disease at L5-S1.
--- NOTE | 2017-11-25 03:42 | Emergency Department Report ---
ED General Adult HPI - General Chief complaint: Extremity Injury, Lower Stated complaint: LT FOOT INJURY Source: patient Mode of arrival: Ambulatory Limitations: No Limitations - History of Present Illness Initial comments: 67-year-old -[place] male comes in to the emergency room stating he's having pain in his left foot and left lower back. Patient reports that he had fallen from a 8-9 foot from a ladder 5 days ago. He denies any loss of consciousness or head injury. He does report that he has an abrasion on his left knee. As well as his left big toe is tender. Patient admits he is able to move all his extremities and able to ambulate without difficulties. Patient does report he is followed by Dr. Evelyne Jang who is his PCP. Patient also request for refill on his Aldactone. Patient has a past medical history hypertension diabetes Location: back, lower extremity Severity scale (0 -10): 4 Quality: aching Consistency: intermittent Improves with: rest Worsens with: movement Associated Symptoms: denies other symptoms Treatments Prior to Arrival: none - Related Data Home Medications Medication Instructions Recorded Confirmed Last Taken Fenofibrate 160 mg PO QDAY 10/22/16 10/22/16 Unknown Pravastatin Sodium 40 mg PO QHS 10/22/16 10/22/16 Unknown Pregabalin [Lyrica] 1 cap PO BID 10/22/16 10/23/16 Unknown Valsartan(Nf) [Diovan (Nf)] 1 tab PO QDAY 10/22/16 10/22/16 Unknown Aspirin [Aspirin BABY CHEW TAB] 81 mg PO QDAY 10/23/16 10/23/16 Unknown Ergocalciferol [Vitamin D2] 1 cap PO QWEEK 10/23/16 10/23/16 Unknown Previous Rx's Medication Instructions Recorded Last Taken Type Insulin Glargine [Lantus VIAL] 20 units SC QHS #1000 units 10/25/16 Unknown Rx Metoprolol Xl [Metoprolol 100 mg PO DAILY #30 tablet 10/25/16 Unknown Rx SUCCINATE ER TAB] NIFEdipine XL [Procardia Xl] 60 mg PO Q12H #60 tablet 10/25/16 Unknown Rx glipiZIDE [Glucotrol] 10 mg PO BIDDIAB #60 tablet 10/25/16 Unknown Rx hydrALAZINE [Apresoline TAB] 100 mg PO Q8HR #90 tab 10/25/16 Unknown Rx Spironolactone [Aldactone] 50 mg PO BID #60 tablet 11/25/17 Unknown Rx traMADol [Ultram 50 MG tab] 50 mg PO Q6HR PRN #20 tablet 11/25/17 Unknown Rx Allergies Allergy/AdvReac Type Severity Reaction Status Date / Time No Known Allergies Allergy Verified 10/20/16 21:10 ED Review of Systems ROS: Stated complaint: LT FOOT INJURY Other details as noted in HPI Musculoskeletal: back pain, arthralgia (left foot) ED Past Medical Hx - Past Medical History Previous Medical History?: Yes Hx Hypertension: Yes Hx Diabetes: Yes (IDDM) - Surgical History Past Surgical History?: No - Social History Smoking Status: Current Every Day Smoker Substance Use Type: None - Medications Home Medications: Home Medications Medication Instructions Recorded Confirmed Last Taken Type Fenofibrate 160 mg PO QDAY 10/22/16 10/22/16 Unknown History Pravastatin Sodium 40 mg PO QHS 10/22/16 10/22/16 Unknown History Pregabalin [Lyrica] 1 cap PO BID 10/22/16 10/23/16 Unknown History Valsartan(Nf) [Diovan (Nf)] 1 tab PO QDAY 10/22/16 10/22/16 Unknown History Aspirin [Aspirin BABY CHEW TAB] 81 mg PO QDAY 10/23/16 10/23/16 Unknown History Ergocalciferol [Vitamin D2] 1 cap PO QWEEK 10/23/16 10/23/16 Unknown History Insulin Glargine [Lantus VIAL] 20 units SC QHS #1000 units 10/25/16 Unknown Rx Metoprolol Xl [Metoprolol 100 mg PO DAILY #30 tablet 10/25/16 Unknown Rx SUCCINATE ER TAB] NIFEdipine XL [Procardia Xl] 60 mg PO Q12H #60 tablet 10/25/16 Unknown Rx glipiZIDE [Glucotrol] 10 mg PO BIDDIAB #60 tablet 10/25/16 Unknown Rx hydrALAZINE [Apresoline TAB] 100 mg PO Q8HR #90 tab 10/25/16 Unknown Rx Spironolactone [Aldactone] 50 mg PO BID #60 tablet 11/25/17 Unknown Rx traMADol [Ultram 50 MG tab] 50 mg PO Q6HR PRN #20 tablet 06/30/18 Unknown Rx ED Physical Exam - General Limitations: No Limitations General appearance: alert, in no apparent distress - Head Head exam: Present: atraumatic, normocephalic - Neck Neck exam: Present: full ROM - Cardiovascular Cardiovascular Exam: Present: regular rate, normal rhythm. Absent: systolic murmur, diastolic murmur, rubs, gallop - Expanded Lower Extremity Exam Left Upper Leg exam: Present: normal inspection, full ROM Knee exam: Present: full ROM, tenderness, abrasion Lower Leg exam: Present: full ROM, swelling Ankle exam: Present: full ROM, swelling Foot/Toe exam: Present: full ROM, tenderness, swelling Neuro vascular tendon exam: Present: no vascular compromise. Absent: abnormal cap refill, motor deficit, sensory deficit, foot drop ED Course Vital Signs 11/24/17 21:30 Temperature 99.4 F Pulse Rate 104 H Respiratory 20 Rate Blood Pressure 177/86 O2 Sat by Pulse 98 Oximetry ED Medical Decision Making - Radiology Data Radiology results: report reviewed, image reviewed FINAL REPORT EXAM: XR CALCANEOUS 2+V LT HISTORY: foot pain s/p fall TECHNIQUE: AP and lateral views of left calcaneus PRIORS: None. FINDINGS: The bones are normally aligned and mineralized. There is no evidence of fracture or subluxation. The soft tissues are unremarkable. IMPRESSION: Normal left calcaneus Transcribed By: CHRISTINE Dictated By: SHAYY COSTA MD Electronically Authenticated By: SHAYY COSTA MD Signed Date/Time: 11/24/172328 DD/ 28 TD/TT: 11/24/172328 FINAL REPORT EXAM: XR SPINE LUMBOSACRAL 2-3V HISTORY: low back pain s/p fall TECHNIQUE: 3 views of the lumbar spine PRIORS: None. FINDINGS: The lumbar vertebral bodies are normal in height. There is endplate osteophyte formation at L3-4, L4-5 and L5-S1. There is moderate loss of disc height at L5-S1. At L5-S1 there is also facet hypertrophy resulting 6 mm of anterolisthesis of L5 on S1. The soft tissues are unremarkable. IMPRESSION: No evidence of acute fracture. Multilevel degenerative disc disease. Degenerative facet disease at L5-S1. Transcribed By: CHRISTINE Dictated By: SHAYY COSTA MD Electronically Authenticated By: SHAYY COSTA MD Signed Date/Time: 11/24/172346 DD/ 46 TD/TT: 11/24/172346 - Medical Decision Making Patient has been evaluated by this provider fast track. Discussed with patient that his x-rays came back with no fractures. X-ray of lumbar sacral shows patient has degenerative disc disease at L5 through S1. Foot x-ray was negative for any fractures. Discussed the patient will refill his Aldactone 50 mg by mouth twice a day as well as place him on a prescription for tramadol 50 mg every 6 hours dispense 20. Discussed the patient if symptoms persist or gets worse to follow back up with Dr. Evelyne Jang. Critical care attestation.: If time is entered above; I have spent that time in minutes in the direct care of this critically ill patient, excluding procedure time. ED Disposition Clinical Impression: Fall from ladder Qualifiers: Encounter type: initial encounter Qualified Code(s): W11.XXXA - Fall on and from ladder, initial encounter HTN (hypertension) Qualifiers: Hypertension type: unspecified Qualified Code(s): I10 - Essential (primary) hypertension Disposition: - TO HOME OR SELFCARE Is pt being admited?: No Does the pt Need Aspirin: No Condition: Stable Instructions: Hypertension (ED), Fall Prevention for Older Adults (ED) Additional Instructions: Please take chronic medication as needed. He states from it all for pain as needed. If her symptoms persist or gets worse please follow up with her primary care provider. Prescriptions: Spironolactone [Aldactone] 50 mg PO BID #60 tablet traMADol [Ultram 50 MG tab] 50 mg PO Q6HR PRN #20 tablet PRN Reason: Pain Referrals: PRIMARY CARE, [Primary Care Provider] - 3-5 Days EVELYNE JANG MD [Staff Physician] - 3-5 Days Forms: Work/School Release Form(ED)
[2017-11-25 04:20] VITALS: BP 175/94
== END 2017-11-25 04:20 | disposition home or self-care (01) ==
LOC: ED 21:26
DX: S99.822A Other specified injuries of left foot, initial encounter (principal); I10 Essential (primary) hypertension; E11.9 Type 2 diabetes mellitus without complications; F17.200 Nicotine dependence, unspecified, uncomplicated; Z79.82 Long term (current) use of aspirin; Z79.4 Long term (current) use of insulin; W11.XXXA Fall on and from ladder, initial encounter; Y93.89 Activity, other specified; Y92.89 Other specified places as the place of occurrence of the external cause; Y99.8 Other external cause status
CPT/HCPCS: 72100; 72220; 99283

== ENCOUNTER 2018-01-12 22:42 | Emergency (ER) | payer BC ==
[2018-01-12 23:12] VITALS: BP 165/83
--- NOTE | 2018-01-13 03:24 | Emergency Department Report ---
ED Fall HPI - General Chief Complaint: Fall Stated Complaint: FALL/HEAD INJURY/DIZZINESS Time Seen by Provider: 01/13/18 03:19 Source: patient Mode of arrival: Ambulatory - History of Present Illness Initial Comments: 67-year-old -[place] Islander male with a past medical history of hypertension and diabetes reports to the emergency room after having a fall while at work. Patient states that he hit his head on a steel ramp while at work. Patient denies any loss of consciousness no nausea no vomiting but reports that he has a scrape to his right knee and swelling and redness to his left side of his forehead. Patient reports that he does not have a headache but his knees is burning. It was noted the patient had a pulse of 68. MD Complaint: fall (from standing) -: This evening Fall From: standing When Fall Occurred: recurrent falls Fall Witnessed: yes, by bystander Place Fall Occurred: work Loss of Consciousness: none Prolonged Down Time?: no Symptoms Prior to Fall: none Location: head Location - Extremities: Right: Knee (scrape) Severity scale (0 -10): 4 Quality: burning Associated Symptoms: denies - Related Data Home Medications Medication Instructions Recorded Confirmed Last Taken Fenofibrate 160 mg PO QDAY 10/22/16 10/22/16 Unknown Pravastatin Sodium 40 mg PO QHS 10/22/16 10/22/16 Unknown Pregabalin [Lyrica] 1 cap PO BID 10/22/16 10/23/16 Unknown Valsartan(Nf) [Diovan (Nf)] 1 tab PO QDAY 10/22/16 10/22/16 Unknown Aspirin [Aspirin BABY CHEW TAB] 81 mg PO QDAY 10/23/16 10/23/16 Unknown Ergocalciferol [Vitamin D2] 1 cap PO QWEEK 10/23/16 10/23/16 Unknown Previous Rx's Medication Instructions Recorded Last Taken Type Insulin Glargine [Lantus VIAL] 20 units SC QHS #1000 units 10/25/16 Unknown Rx Metoprolol Xl [Metoprolol 100 mg PO DAILY #30 tablet 10/25/16 Unknown Rx SUCCINATE ER TAB] NIFEdipine XL [Procardia Xl] 60 mg PO Q12H #60 tablet 10/25/16 Unknown Rx glipiZIDE [Glucotrol] 10 mg PO BIDDIAB #60 tablet 10/25/16 Unknown Rx hydrALAZINE [Apresoline TAB] 100 mg PO Q8HR #90 tab 10/25/16 Unknown Rx Spironolactone [Aldactone] 50 mg PO BID #60 tablet 11/25/17 Unknown Rx traMADol [Ultram 50 MG tab] 50 mg PO Q6HR PRN #20 tablet 11/25/17 Unknown Rx Allergies Allergy/AdvReac Type Severity Reaction Status Date / Time No Known Allergies Allergy Verified 10/20/16 21:10 ED Review of Systems ROS: Stated complaint: FALL/HEAD INJURY/DIZZINESS Other details as noted in HPI Comment: All other systems reviewed and negative Constitutional: denies: chills, fever Cardiovascular: denies: chest pain, palpitations, dyspnea on exertion Musculoskeletal: denies: back pain, joint swelling, arthralgia Skin: rash (right knee), other (bruise on left forehead) Neurological: denies: headache, weakness, paresthesias Psychiatric: denies: anxiety, depression ED Past Medical Hx - Past Medical History Previous Medical History?: Yes Hx Hypertension: Yes Hx Diabetes: Yes (IDDM) - Surgical History Past Surgical History?: Yes Additional Surgical History: left knee. hernia - Social History Smoking Status: Current Every Day Smoker Substance Use Type: None - Medications Home Medications: Home Medications Medication Instructions Recorded Confirmed Last Taken Type Fenofibrate 160 mg PO QDAY 10/22/16 10/22/16 Unknown History Pravastatin Sodium 40 mg PO QHS 10/22/16 10/22/16 Unknown History Pregabalin [Lyrica] 1 cap PO BID 10/22/16 10/23/16 Unknown History Valsartan(Nf) [Diovan (Nf)] 1 tab PO QDAY 10/22/16 10/22/16 Unknown History Aspirin [Aspirin BABY CHEW TAB] 81 mg PO QDAY 10/23/16 10/23/16 Unknown History Ergocalciferol [Vitamin D2] 1 cap PO QWEEK 10/23/16 10/23/16 Unknown History Insulin Glargine [Lantus VIAL] 20 units SC QHS #1000 units 10/25/16 Unknown Rx Metoprolol Xl [Metoprolol 100 mg PO DAILY #30 tablet 10/25/16 Unknown Rx SUCCINATE ER TAB] NIFEdipine XL [Procardia Xl] 60 mg PO Q12H #60 tablet 10/25/16 Unknown Rx glipiZIDE [Glucotrol] 10 mg PO BIDDIAB #60 tablet 10/25/16 Unknown Rx hydrALAZINE [Apresoline TAB] 100 mg PO Q8HR #90 tab 10/25/16 Unknown Rx Spironolactone [Aldactone] 50 mg PO BID #60 tablet 11/25/17 Unknown Rx traMADol [Ultram 50 MG tab] 50 mg PO Q6HR PRN #20 tablet 11/25/17 Unknown Rx ED Physical Exam - General Limitations: No Limitations General appearance: alert, in no apparent distress - Head Head exam: Present: other (right frontal erythematous edematous hematoma) - Eye Eye exam: Present: PERRL, EOMI - ENT ENT exam: Present: mucous membranes moist - Neck Neck exam: Present: full ROM - Respiratory Respiratory exam: Present: normal lung sounds bilaterally. Absent: respiratory distress - Cardiovascular Cardiovascular Exam: Present: regular rate, normal rhythm. Absent: systolic murmur, diastolic murmur, rubs, gallop - GI/Abdominal GI/Abdominal exam: Present: soft, normal bowel sounds - Expanded Lower Extremity Exam Right Hip exam: Present: normal inspection, full ROM Upper Leg exam: Present: normal inspection, full ROM Knee exam: Present: full ROM, tenderness, abrasion. Absent: swelling Lower Leg exam: Present: swelling (bilateral) Neuro vascular tendon exam: Present: no vascular compromise Gait: Positive: observed and normal - Neurological Exam Neurological exam: Present: alert, oriented X3 - Psychiatric Psychiatric exam: Present: normal affect, normal mood - Skin Skin exam: Present: warm, dry, intact, normal color. Absent: rash ED Course Vital Signs 01/12/18 23:08 Temperature 98.3 F Pulse Rate 17 L Respiratory 17 Rate Blood Pressure 165/83 O2 Sat by Pulse 99 Oximetry ED Medical Decision Making - Radiology Data Radiology results: report reviewed, image reviewed FINAL REPORT PROCEDURE: CT HEAD/BRAIN WO CON TECHNIQUE: Computerized tomography of the head was performed without contrast material. HISTORY: fall COMPARISON: No prior studies are available for comparison. FINDINGS: Skull and scalp: Normal. Paranasal sinuses: Normal. Ventricles and subarachnoid spaces: Normal. Cerebrum: No evidence of hemorrhage, acute infarction or mass . Cerebellum and brainstem: No evidence of hemorrhage, acute infarction or mass. Vasculature: Normal. Comments: None. IMPRESSION: There is no evidence of an acute intracranial process Transcribed By: [facility] Dictated By: KAMALA MORRELL MD Electronically Authenticated By: KAMALA MORRELL MD Signed Date/Time: 01/13/18 7894 - Medical Decision Making Patient has been evaluated by this provider fast track. Pain medication was offered patient declined. CT of head is pending. Abrasion on knee and forehead cleaned with normal saline and Betadine and clean bandages in place by this provider Patient left prior to be doing that katia examination. Patient did have visual acuity examination and then told the nurse that he will follow-up with his eyes specialist. Patient left without speaking to this provider. Critical care attestation.: If time is entered above; I have spent that time in minutes in the direct care of this critically ill patient, excluding procedure time. ED Disposition Clinical Impression: Fall Qualifiers: Encounter type: initial encounter Qualified Code(s): W19.XXXA - Unspecified fall, initial encounter Head injury Qualifiers: Encounter type: initial encounter Qualified Code(s): S09.90XA - Unspecified injury of head, initial encounter Traumatic hematoma of forehead Qualifiers: Encounter type: initial encounter Qualified Code(s): S00.83XA - Contusion of other part of head, initial encounter Disposition: DC-01 TO HOME OR SELFCARE Is pt being admited?: No Does the pt Need Aspirin: No Condition: Stable Instructions: Fall Prevention for Older Adults (ED), Minor Head Injury (ED) Additional Instructions: Please return back to the emergency room if there is any altered mental status, worsening of her headache, change of vision, nausea vomiting. Please keep your abrasions clean and dry water and soap. You can place a clean bandage for protection. Referrals: PRIMARY CARE, [Primary Care Provider] - 3-5 Days Forms: Work/School Release Form(ED)
--- NOTE | 2018-01-13 03:32 | Cat Scan Report ---
FINAL REPORT PROCEDURE: CT HEAD/BRAIN WO CON TECHNIQUE: Computerized tomography of the head was performed without contrast material. HISTORY: fall COMPARISON: No prior studies are available for comparison. FINDINGS: Skull and scalp: Normal. Paranasal sinuses: Normal. Ventricles and subarachnoid spaces: Normal. Cerebrum: No evidence of hemorrhage, acute infarction or mass . Cerebellum and brainstem: No evidence of hemorrhage, acute infarction or mass. Vasculature: Normal. Comments: None. IMPRESSION: There is no evidence of an acute intracranial process
== END 2018-01-13 04:29 | disposition home or self-care (01) ==
LOC: ED 22:42
DX: S00.83XA Contusion of other part of head, initial encounter (principal); I10 Essential (primary) hypertension; E11.9 Type 2 diabetes mellitus without complications; F17.200 Nicotine dependence, unspecified, uncomplicated; Z79.4 Long term (current) use of insulin; Z79.82 Long term (current) use of aspirin; W17.89XA Other fall from one level to another, initial encounter; Y93.89 Activity, other specified; Y92.89 Other specified places as the place of occurrence of the external cause; Y99.8 Other external cause status
CPT/HCPCS: 70450; 99283